=== PATIENT | male | born 1940 | race Caucasian/White ===

== ENCOUNTER 2018-03-22 08:27 | Emergency (ER) | payer MEDICARE, BC ==
--- NOTE | 2018-03-22 08:27 | EDM.PDOC ---
ED HPI GENERAL MEDICAL PROBLEM - General Chief Complaint: General Stated Complaint: FALL & DISORIENTATION. IN BY DL AMB Time Seen by Provider: 03/22/18 08:27 Source of Information: Reports: Patient, EMS, Family, Old Records, RN, RN Notes Reviewed History Limitations: Reports: Altered Mental Status - History of Present Illness INITIAL COMMENTS - FREE TEXT/NARRATIVE: Arrives from assisted living by ambulance with report that pt was found in bed confused, and had an abrasion from an apparent fall during the night. Pt's family state the pt began to c/o vague Sx's of not feeling well on Sunday (), and was clearly confused during a phone conversation last evening. Pt denies headache, pain, or any specific complaints. Pt is aware that he confused. Pt unable to provide any further history. Remote memory is intact. Onset: Unknown/Unsure Duration: Constant Location: Reports: Head Severity: Severe Improves with: Reports: None Worsens with: Reports: None Associated Symptoms: Reports: No Other Symptoms Treatments PRINT MANAGER: Reports: Other Medication(s) (zofran) - Related Data Allergies Allergy/AdvReac Type Severity Reaction Status Date / Time No Known Allergies Allergy Verified 05/05/16 15:38 Home Meds: Home Meds Warfarin Sodium [Jantoven] 5 mg PO .WED 10/27/13 [History] Fa/Arginine HCl/B12/B6/Pep Ex [Folbee Ar Tablet] 1 tab PO DAILY 06/29/15 [ History] Digoxin 0.25 mg PO DAILY 04/02/16 [History] Donepezil [Aricept] 5 mg PO DAILY 04/02/16 [History] Dutasteride [Avodart] 0.5 mg PO ASDIRECTED 04/02/16 [History] Furosemide 20 mg PO DAILY 04/02/16 [History] Metoprolol Tartrate 50 mg PO BID 04/02/16 [History] Warfarin [Coumadin] 2.5 mg PO .[place] 05/05/16 [History] Past Medical History Cardiovascular History: Reports: Afib, Blood Clots/VTE/DVT Respiratory History: Reports: PE Gastrointestinal History: Reports: Diverticulosis Genitourinary History: Reports: BPH, Prostate Disorder Neurological History: Reports: Alzheimers Disease Hematologic History: Reports: Anticoagulation Therapy Immunologic History: Reports: Immunosuppression Social & Family History - Family History Family Medical History: Unobtainable - Living Situation & Occupation Living situation: Reports: , Single, Assisted Living Occupation: Retired ED ROS GENERAL - Review of Systems Review Of Systems: Unable To Obtain (due to confusion) ED EXAM, GENERAL - Physical Exam Exam: See Below Exam Limited By: Altered Mental Status General Appearance: Alert, No Apparent Distress Eye Exam: Bilateral Eye: EOMI, Normal Inspection Ears: Hearing Grossly Normal Nose: Normal Inspection Throat/Mouth: Normal Inspection, Normal Lips, Normal Oropharynx, Normal Voice, No Airway Compromise Head: Normocephalic, Other (superficial abrasion to forehead/scalp) Neck: Normal Inspection, Supple, Non-Tender, Full Range of Motion. No: Lymphadenopathy (L), Lymphadenopathy (R) Respiratory/Chest: No Respiratory Distress, Lungs Clear, Normal Breath Sounds, No Accessory Muscle Use, Chest Non-Tender Cardiovascular: Regular Rate, Rhythm GI/Abdominal: Normal Bowel Sounds, Soft, Non-Tender, No Distention. No: Guarding, Rigid, Rebound (Male) Exam: Deferred Rectal (Males) Exam: Deferred Extremities: Normal Inspection, Non-Tender Neurological: Alert, Oriented, Confused, Other (left facial droop, clear speech , no apparent swallowing difficulties) Psychiatric: Normal Mood Skin Exam: Warm, Dry, Intact, Normal Color, No Rash EKG INTERPRETATION EKG Date: 03/22/18 Time: 08:39 Rhythm: Other (PACED, A-fib) Comparison: NA - No Prior EKG (PACED) Course - Vital Signs Last Recorded V/S: See paper chart for VS. - Orders/Labs/Meds Orders: Active Orders 24 hr Category Date Time Status EKG 12 Lead [EKG Documentation Completion] [RC] STAT Care 03/22/18 08:29 Active Peripheral IV Care [RC] . DIRECTED Care 03/22/18 08:34 Active B-TYPE NATRIURETIC PEPTIDE,BNP [CHEM] Stat Lab 03/22/18 09:00 Received CK W CKMB [CHEM] Stat Lab 03/22/18 09:00 Received COMPREHENSIVE METABOLIC PN,CMP [CHEM] Stat Lab 03/22/18 09:00 Received CULTURE BLOOD [BC] Stat Lab 03/22/18 08:34 Ordered CULTURE BLOOD [BC] Stat Lab 03/22/18 09:00 Received DIGOXIN [CHEM] Stat Lab 03/22/18 09:00 Received DRUG SCREEN URINE BIORAD [URCHEM] Stat Lab 03/22/18 08:33 Ordered ETHANOL BLOOD MEDICAL [CHEM] Stat Lab 03/22/18 09:00 Received INR,PT,PROTHROMBIN TIME [COAG] Stat Lab 03/22/18 09:00 Received LACTIC ACID [CHEM] Stat Lab 03/22/18 09:00 Received TROPONIN I [CHEM] Stat Lab 03/22/18 09:00 Received UA W/MICROSCOPIC [URIN] Stat Lab 03/22/18 08:29 Ordered Nitroglycerin/D5W [Nitroglycerin 25 MG/D5W 250 ML] Med 03/22/18 09:00 Active 25 mg in 250 ml IV TITRATE Phytonadione [AquaMephyton] 10 mg Med 03/22/18 08:58 Active Sodium Chloride 0.9% [Normal Saline] 50 ml IV NOW Sodium Chloride 0.9% [Saline Flush] Med 03/22/18 08:34 Active 10 ml FLUSH ASDIRECTED PRN Blood Culture x2 Reflex Set [OM.PC] Stat Oth 03/22/18 08:30 Ordered Peripheral IV Insertion Adult [OM.PC] Stat Ot 03/22/18 08:29 Ordered Medication Orders Nitroglycerin/Dextrose (Nitroglycerin 25 Mg/D5w 250 Ml) 25 mg in 250 mls @ 6 mls/hr IV TITRATE KOFI; Protocol Last Admin: 03/22/18 09:07 Dose: 10 mcg/min, 6 mls/hr Phytonadione 10 mg/ Sodium (Chloride) 51 mls @ 100 mls/hr IV NOW ONE Stop: 03/22/18 09:28 Last Admin: 03/22/18 09:05 Dose: 100 mls/hr Sodium Chloride (Saline Flush) 10 ml FLUSH ASDIRECTED PRN PRN Reason: Keep Vein Open Labs: Laboratory Tests 03/22/18 03/22/18 Range/Units 08:49 09:00 WBC 13.2 H (5.0-10.0) 10^3/uL RBC 5.32 (4.6-6.2) 10^6/uL Hgb 16.5 (14.0-18.0) g/dL Hct 49.5 (40.0-54.0) % MCV 93.0 (80-100) fL MCH 31.0 (27.0-34.0) pg MCHC 33.3 (33.0-35.0) g/dL Plt Count 208 (150-450) 10^3/uL Neut % (Auto) 84.8 H (42.2-75.2) % Lymph % (Auto) 7.0 L (20.5-50.1) % Franklin % (Auto) 8.0 (2-8) % Eos % (Auto) 0.1 L (1.0-3.0) % Baso % (Auto) 0.1 (0.0-1.0) % POC Glucose 107 (83-110) mg/dl pending @ time of transfer. Meds: Medications Generic Name Dose Route Start Last Admin Trade Name Freq PRN Reason Stop Dose Admin Nitroglycerin/Dextrose 25 mg in 250 mls @ 6 mls/hr 03/22/18 09:00 03/22/18 09 :07 Nitroglycerin 25 Mg/D5w 250 Ml IV 10 mcg/min TITRATE KOFI 6 mls/hr Administration Protocol 10 MCG/MIN Phytonadione 10 mg/ Sodium 51 mls @ 100 mls/hr 03/22/18 08:58 03/22/18 09:05 Chloride IV 03/22/18 09:28 100 mls/hr NOW ONE Administration Sodium Chloride 10 ml 03/22/18 08:34 Saline Flush FLUSH ASDIRECTED PRN Keep Vein Open Discontinued Medications Generic Name Dose Route Start Last Admin Trade Name Freq PRN Reason Stop Dose Admin Nitroglycerin/Dextrose Confirm 03/22/18 08:55 Nitroglycerin 25 Mg/D5w 250 Ml Administered 03/22/18 08:56 Dose 25 mg in 250 mls @ as directed .ROUTE .STK-MED ONE Phytonadione 5 mg 03/22/18 08:51 Aquamephyton PO 03/22/18 08:52 ONETIME ONE Phytonadione Confirm 03/22/18 08:59 Aquamephyton Administered 03/22/18 09:00 Dose 10 mg .ROUTE .STK-MED ONE Vit K 5mg po: cancelled; ordered in error. - Radiology Interpretation Free Text/Narrative:: CT Head w/out contrast: large left posterior I.C. hemorrhage; see Rad. report. CXR: pacer w/leads, no acute process. CT Results Date: 03/22/18 Departure - Departure Time of Disposition: 08:53 Disposition: DC/Tfer to Acute Hospital 02 Condition: Critical Clinical Impression: Acute intracranial hemorrhage - Discharge Information Forms: ED Department Discharge, Interfacility Transfer EMTALA - My Orders Last 24 Hours: My Active Orders 03/22/18 08:29 EKG 12 Lead [EKG Documentation Completion] [RC] STAT UA W/MICROSCOPIC [URIN] Stat Peripheral IV Insertion Adult [OM.PC] Stat 03/22/18 08:30 Blood Culture x2 Reflex Set [OM.PC] Stat 03/22/18 08:33 DRUG SCREEN URINE BIORAD [URCHEM] Stat 03/22/18 08:34 Peripheral IV Care [RC] . DIRECTED CULTURE BLOOD [BC] Stat Sodium Chloride 0.9% [Saline Flush] 10 ml FLUSH ASDIRECTED PRN 03/22/18 08:58 Phytonadione [AquaMephyton] 10 mg Sodium Chloride 0.9% [Normal Saline] 50 ml IV NOW 03/22/18 09:00 B-TYPE NATRIURETIC PEPTIDE,BNP [CHEM] Stat CK W CKMB [CHEM] Stat COMPREHENSIVE METABOLIC PN,CMP [CHEM] Stat CULTURE BLOOD [BC] Stat DIGOXIN [CHEM] Stat ETHANOL BLOOD MEDICAL [CHEM] Stat INR,PT,PROTHROMBIN TIME [COAG] Stat LACTIC ACID [CHEM] Stat TROPONIN I [CHEM] Stat Nitroglycerin/D5W [Nitroglycerin 25 MG/D5W 250 ML] 25 mg in 250 ml IV TITRATE - Assessment/Plan Last 24 Hours: My Active Orders 03/22/18 08:29 EKG 12 Lead [EKG Documentation Completion] [RC] STAT UA W/MICROSCOPIC [URIN] Stat Peripheral IV Insertion Adult [OM.PC] Stat 03/22/18 08:30 Blood Culture x2 Reflex Set [OM.PC] Stat 03/22/18 08:33 DRUG SCREEN URINE BIORAD [URCHEM] Stat 03/22/18 08:34 Peripheral IV Care [RC] . DIRECTED CULTURE BLOOD [BC] Stat Sodium Chloride 0.9% [Saline Flush] 10 ml FLUSH ASDIRECTED PRN 03/22/18 08:58 Phytonadione [AquaMephyton] 10 mg Sodium Chloride 0.9% [Normal Saline] 50 ml IV NOW 03/22/18 09:00 B-TYPE NATRIURETIC PEPTIDE,BNP [CHEM] Stat CK W CKMB [CHEM] Stat COMPREHENSIVE METABOLIC PN,CMP [CHEM] Stat CULTURE BLOOD [BC] Stat DIGOXIN [CHEM] Stat ETHANOL BLOOD MEDICAL [CHEM] Stat INR,PT,PROTHROMBIN TIME [COAG] Stat LACTIC ACID [CHEM] Stat TROPONIN I [CHEM] Stat Nitroglycerin/D5W [Nitroglycerin 25 MG/D5W 250 ML] 25 mg in 250 ml IV TITRATE
[2018-03-22] MEDS ORDERED: Sodium Chloride 0.9% 10 ML Syringe FLUSH PRN (08:34)
[2018-03-22] MEDS ORDERED: Phytonadione ORAL 2.5mg/2.5ml Soln Simple Syrup U/D PO ONE (08:51)
[2018-03-22] MEDS ORDERED: Nitroglycerin/D5W 25 MG/250 ML BOTTLE ONE (08:55)
[2018-03-22] MEDS ORDERED: Phytonadione 10 MG in Sodium Chloride 0.9% 50 ML IV ONE (08:58)
[2018-03-22] MEDS ORDERED: Nitroglycerin/D5W 25 MG/250 ML BOTTLE IV SCH (09:00)
--- NOTE | 2018-03-22 09:06 | CT ---
Clinical history: 78-year-old male on Coumadin with head injury (fall). Scan technique: Volume acquisition of data emergency unenhanced CT scan of the head and brain obtaine d with patient lying supine on the Siemens multi slice scanner [facility]. All data archived in the PACS system for storage, reformatting and study ([facility]). Interpretation: Abnormal. 1. *Huge 4.0 x 4.7 cm diameter acute parenchymal bleed left cerebellar hemisphere with surrounding ed guerrero and mass effect (effacement/displacement) on the fourth ventricle. No abnormal dilatation of the supratentorial ventricular system. 2. Multilevel large focal areas of decreased attenuation identified throughout the periventricular wh ite matter of both cerebral hemispheres. No sign of intraventricular or subarachnoid bleed. 3. Moderate severe generalized symmetric cerebral cortical atrophy. Physiologic midline pineal and ch oroid plexus calcifications. 4. No supratentorial mass lesion. 5. No abnormal extracerebral/intracranial epidural or subdural hematomas. 6. Uniformly thick bony calvarium without sign of skull fracture. Symmetric clear pneumatization of t he mastoid/paranasal sinuses. Note: Abnormal finding relayed to the emergency department (nurse Dori) at 0850 hours, 2018.
--- NOTE | 2018-03-22 09:10 | CR ---
Clinical history: 78-year-old male injured in a fall (large hematoma left cerebral hemisphere). Interpretation: Upright AP portable chest documents external monitoring engineer leads and pacemaker (sin gle lead intact). Normal cardiac silhouette without cephalization of flow, signs of alveolar edema or dependent pleural effusion. Chronic arthritic changes right shoulder and dorsal spine. No lung mass, hilar lymphadenopathy or focal lobar pneumonia. No rib fractures, lung contusion, atelectasis or pneumothorax. CONCLUSION: No acute cardiopulmonary abnormality. No signs of chest trauma.
[2018-03-22 09:27] LABS: CHLORIDE,CL 101 mmol/L (101-111); SODIUM,NA 136 mmol/L (135-145)
--- NOTE | 2018-03-27 07:43 | EKG ---
03/22/2018- SANDEEP WATSON E - FINDINGS: A 12-lead EKG shows atrial fibrillation with heart rate of 66, evidence of right bundle-branch block; and nonspecific ST-T wave changes noted on leads V1, V2, and V3; and T-wave inversions noted on lateral leads. [facility] /[id number]
== END 2018-03-22 09:20 ==
LOC: DL.ED 08:27
DX: S06.300A Unspecified focal traumatic brain injury without loss of consciousness, initial encounter (principal); I48.91 Unspecified atrial fibrillation; Z79.899 Other long term (current) drug therapy; W19.XXXA Unspecified fall, initial encounter
CPT/HCPCS: 36415; 70450; 71045; 80053; 80162; 82550; 82553; 82962; 83605; 83880; 84484; 85025; 85610; 87040; 93005; 93010; 96374; 99284; 99285; G0480; J3430; J7050